=== PATIENT | male | born 1980 | race Caucasian/White ===

== ENCOUNTER 2024-08-04 14:00 | Emergency (ER) | payer OTHER, SELFPAY ==
--- NOTE | ~2024-08-04 | XR_ITS ---
EXAMINATION: Left elbow series left forearm series left hand wrist series CLINICAL INFORMATION: Fall from roof COMPARISON: None. TECHNIQUE: 3 views of the left elbow. 2 views of the left forearm. 3 views of left hand and wrist FINDINGS: Left elbow: There is a prominent olecranon spur. Bone and joints and soft tissues otherwise unremarkable. Left hand and wrist: There is a mildly displaced, moderate to severely comminuted intra-articular distal radius fracture. The fracture extends to the distal radioulnar joint as well as the radiocarpal joint. At the distal radioulnar joint there is a radial fragment displaced approximately 3 mm ulna. No definite volar or dorsal tilt of the remaining radial articular surface. There is a mildly displaced ulnar styloid fracture. The remaining bones joints and soft tissues in the hand and wrist are normal. Left forearm: Distal radius and ulnar styloid fracture as above. No additional fractures or soft tissue abnormalities. XR/XR hand wrist LT IMPRESSION: Left elbow: No fracture or acute abnormality. Left forearm, wrist, and hand: Mildly displaced moderately to severely comminuted intra-articular fracture of the distal radius. Ulnar styloid fracture Electronically signed by: Pedro Carlin MD 08/04/2024 03:57 PM [facility]
--- NOTE | ~2024-08-04 | CT_ITS ---
EXAMINATION: CT CERVICAL SPINE WITHOUT CONTRAST CLINICAL INFORMATION: Status post fall. COMPARISON: None available. TECHNIQUE: Contiguous axial images through the cervical spine from the craniocervical junction to the thoracic inlet using 3 mm collimation with bone and soft tissue algorithm. Sagittal and coronal reformatted images acquired. This CT examination was performed using dose optimization techniques as appropriate, variously including the following: *Automated exposure control *Adjustment of mA and/or kV according to patient size (this includes techniques or standardized protocols for targeted exams where dose is matched to indication/reason for exam; i.e. extremities or head) *Use of iterative reconstruction technique DLP: 476.53 mGy-cm FINDINGS: Craniocervical junction is intact. C1 is intact. C2 is intact. C3 is intact. C4 is intact. C5 is intact. C6 is intact. C7 is intact. The alignment is normal. Multilevel marginal osteophyte formation C3 C6. No prevertebral compartment hematoma. Tympanic cavities are well aerated. Poor pneumatization of the mastoid air cells. 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 CT/CT cervical spine wo IV con IMPRESSION: L2 level spondylosis, C3 C6 without acute fracture or trauma-related listhesis. Fleischner guidelines were followed. Electronically signed by: Ja Nolen MD 08/04/2024 03:55 PM [facility]
--- NOTE | ~2024-08-04 | XR_ITS ---
EXAMINATION: XR WRIST, LEFT CLINICAL INFORMATION: Post reduction. COMPARISON: None available. TECHNIQUE: PA, lateral, and oblique views of the left wrist. FINDINGS: Distal comminuted and impacted intra-articular radial fracture, status post reduction in near-anatomic alignment. Ulnar styloid avulsion injury is noted. XR/XR wrist LT min 3V IMPRESSION: Distal comminuted and impacted intra-articular radial fracture, status post reduction in near-anatomic alignment. Ulnar styloid avulsion injury is noted. Electronically signed by: Shannen Tracy MD 08/04/2024 06:46 PM [facility]
--- NOTE | ~2024-08-04 | XR_ITS ---
EXAMINATION: Left elbow series left forearm series left hand wrist series CLINICAL INFORMATION: Fall from roof COMPARISON: None. TECHNIQUE: 3 views of the left elbow. 2 views of the left forearm. 3 views of left hand and wrist FINDINGS: Left elbow: There is a prominent olecranon spur. Bone and joints and soft tissues otherwise unremarkable. Left hand and wrist: There is a mildly displaced, moderate to severely comminuted intra-articular distal radius fracture. The fracture extends to the distal radioulnar joint as well as the radiocarpal joint. At the distal radioulnar joint there is a radial fragment displaced approximately 3 mm ulna. No definite volar or dorsal tilt of the remaining radial articular surface. There is a mildly displaced ulnar styloid fracture. The remaining bones joints and soft tissues in the hand and wrist are normal. Left forearm: Distal radius and ulnar styloid fracture as above. No additional fractures or soft tissue abnormalities. XR/XR forearm LT 2V IMPRESSION: Left elbow: No fracture or acute abnormality. Left forearm, wrist, and hand: Mildly displaced moderately to severely comminuted intra-articular fracture of the distal radius. Ulnar styloid fracture Electronically signed by: Pedro Carlin MD 08/04/2024 03:57 PM EST
--- NOTE | ~2024-08-04 | CT_ITS ---
STUDY: IV contrast enhanced CT of the chest, abdomen and pelvis. INDICATION: Fall from 1.5 stories. Dennis helical imaging obtained through the chest, abdomen and pelvis following injection of 85 mL Omnipaque 350 IV contrast without adverse effect. Reconstructed images performed in coronal and sagittal planes. This CT examination was performed using dose optimization techniques as appropriate, variously including the following: *Automated exposure control *Adjustment of mA and/or kV according to patient size (this includes techniques or standardized protocols for targeted exams where dose is matched to indication/reason for exam; i.e. extremities or head) *Use of iterative reconstruction technique TOTAL EXAM DLP: 436.63 and 788.27 mGy-cm, chest and abdomen/pelvis respectively. FINDINGS: CHEST: Airways and lungs: Trachea and bronchi are patent. Minor dependent lower lobe atelectasis. No consolidations, contusions, groundglass opacities or suspicious lung nodules. Pleura: No pneumothoraces, effusions, masses or thickening. Mediastinum: Unremarkable thyroid. Nonspecific anterior mediastinal stranding without mass or lymphadenopathy. Heart size within normal limits. No pericardial effusion. Coronary calcifications: None. Nonaneurysmal aorta with 4 vessel branch anatomy. Nonenlarged pulmonary arteries with no central filling defects. Chest wall and axilla: No pathologic lymphadenopathy. No soft tissue stranding or hematomas. ABDOMEN AND PELVIS: Liver, gallbladder, spleen, pancreas, adrenal glands and kidneys all within normal limits. Stomach is decompressed. Nonobstructive bowel pattern. Unremarkable terminal ileum. Appendix not seen with certainty. Decompressed transverse and descending colon. Pelvic organs are unremarkable. Bladder is well-distended and normal appearing. Vessels: Unremarkable. Lymph nodes: No pathologic lymphadenopathy. Peritoneum/retroperitoneum: Nonspecific mild mesenteric stranding about the some nonocclusive thrombus within perincreatic/duodenal region, celiac and superior mesenteric arteries. No CT evidence of duodenal hematoma. BONES AND SOFT TISSUES: Comminuted displaced fracture of the distal left radius. No acute vertebral body, pelvic or rib fractures . No organized hematomas. Soft tissue stranding adjacent to the left hip. CT/CT abdomen pelvis w IV con IMPRESSION: No definite acute intrathoracic, intra-abdominal or pelvic posttraumatic pathology. Nonspecific epigastric stranding. Correlate clinically. Consider lipase level if clinical suspicion for pancreatitis. Mild left hip soft tissue injury. Incidentally noted displaced, comminuted left radial head fracture. Electronically signed by: Lacy Chaney MD 08/04/2024 04:46 PM [facility]
--- NOTE | ~2024-08-04 | CT_ITS ---
EXAMINATION: CT HEAD WITHOUT CONTRAST CLINICAL INFORMATION: fall with head strike, 1.5 stories COMPARISON: None available. TECHNIQUE: Contiguous axial imaging was performed from the skull base to vertex without intravenous administration of contrast. This CT examination was performed using dose optimization techniques as appropriate, variously including the following: *Automated exposure control *Adjustment of mA and/or kV according to patient size (this includes techniques or standardized protocols for targeted exams where dose is matched to indication/reason for exam; i.e. extremities or head) *Use of iterative reconstruction technique DLP: 867.79 mGy-cm FINDINGS: No acute intracranial hemorrhage, mass effect, midline shift, hydrocephalus or herniation. [place]-white matter differentiation is normal. Posterior cranial fossa contents demonstrated no acute intracranial hemorrhage or mass effect. Sellar/suprasellar region demonstrated no gross hemorrhage or mass effect. Craniocervical junction is intact. No gross soft tissue scalp contusion/hemorrhage. Bony calvarium is intact. Skull base is intact. Mucosal thickening in the paranasal sinuses. Tympanic cavities are well aerated and pneumatized. For pneumatization of the mastoid air cells. CT/CT head/brain wo IV con IMPRESSION: No acute fracture, bony calvarium. No acute intracranial hemorrhage. Electronically signed by: Ja Nolen MD 08/04/2024 03:51 PM EST
--- NOTE | ~2024-08-04 | XR_ITS ---
EXAMINATION: Left elbow series left forearm series left hand wrist series CLINICAL INFORMATION: Fall from roof COMPARISON: None. TECHNIQUE: 3 views of the left elbow. 2 views of the left forearm. 3 views of left hand and wrist FINDINGS: Left elbow: There is a prominent olecranon spur. Bone and joints and soft tissues otherwise unremarkable. Left hand and wrist: There is a mildly displaced, moderate to severely comminuted intra-articular distal radius fracture. The fracture extends to the distal radioulnar joint as well as the radiocarpal joint. At the distal radioulnar joint there is a radial fragment displaced approximately 3 mm ulna. No definite volar or dorsal tilt of the remaining radial articular surface. There is a mildly displaced ulnar styloid fracture. The remaining bones joints and soft tissues in the hand and wrist are normal. Left forearm: Distal radius and ulnar styloid fracture as above. No additional fractures or soft tissue abnormalities. XR/XR elbow LT 2V IMPRESSION: Left elbow: No fracture or acute abnormality. Left forearm, wrist, and hand: Mildly displaced moderately to severely comminuted intra-articular fracture of the distal radius. Ulnar styloid fracture Electronically signed by: Pedro Carlin MD 08/04/2024 03:57 PM EST
[2024-08-04 14:11] VITALS: BP 176/111; PULSE 85; RESP 18; TEMP 36.8; O2SAT 98; BMI 30.3
--- NOTE | 2024-08-04 14:12 | ED_ITS ---
HPI - General Adult General Chief complaint: Trauma Stated complaint: fall, hand/head inj Time Seen by Provider: 08/04/24 14:27 History of Present Illness ED Provider: Dr. Mijares HPI narrative: 44 y/o M patient; without significant PMH or daily medications, presents from home reporting slip and fall off approx 15 foot high roof prior to arrival. The patient was standing on a roof when he slipped on wet leaves and fell off of the roof. He had + head strike without loss of consciousness. His primary complaint is left wrist pain. He otherwise denies: headache, neck pain, back pain, chest pain, SOB, nausea/vomiting, abdominal pain. He has been ambulatory since the event. Unknown tdap. He did not take analgesia prior to arrival. Related Data Allergies Allergy/AdvReac Type Severity Reaction Status Date / Time No Known Allergies Allergy Verified 08/04/24 14:18 Review of Systems 2 Review of Systems: Yes all other systems are reviewed and are negative PMFSH Past Medical History Attestation statement: The following information was validated with the patient. Source: unable to obtain Social History Social History Advance Directives: No Advance Directives Information Provided: Yes Do you have a plan to hurt others: No Plan Physical Exam ED Vital Signs: Vital Signs - 24 hr 08/04/24 14:11 08/04/24 16:17 08/04/24 16:38 Temperature 98.3 F 98.2 F 97.6 F Pulse Rate 85 81 77 Respiratory Rate 18 16 18 Blood Pressure 176/111 H 130/82 128/81 Pulse Oximetry 98 98 98 Oxygen Delivery Method Room Air Room Air Room Air 08/04/24 18:12 Temperature 98.0 F Pulse Rate 88 Respiratory Rate 16 Blood Pressure 136/86 Pulse Oximetry 97 Oxygen Delivery Method Room Air BMI result Body Mass Index 30.3 Patient is afebrile, quite hypertensive. Const General: cooperative HENMT Other: Left forehead abrasion No septal hematoma Dentition intact Eyes General: appearance normal, both eyes and all related structures Pupils: Equal, round and reactive pupils present EOM: EOMs intact bilaterally Neck Other: C-collar in place Neck: Yes normal visual inspection and No tender Chest Chest palpation & inspection: normal inspection of the chest and normal palpation of entire chest wall Resp Effort & Inspection: normal respiratory effort, able to speak in complete sentences, no cough and no respiratory distress Auscultation: clear to auscultation bilaterally Cardio Rate: regular rate Rhythm: regular rhythm Peripheral pulses: Peripheral pulses 2+ throughout GI Inspection: Yes normal to inspection, No Abdominal wall edema and No distended Palpation (GI): Soft to palpation, not firm, nontender, no guarding and not rigid Back/Spine/Pelvis Back: No back tenderness Neuro Cranial nerves: Yes Equal, round and reactive pupils present Extrem Other: Left upper extremity: left wrist + deformity, no skin abrasion or laceration, NVI. FROM elbow, shoulder, fingers. Left lower extremity: small abrasions to anterior aspect of tibia Course Course Course Narrative: This is a rapid medical exam performed by Shahana Horn NP: Additional HPI, ROS, PE not included below will be deferred to primary provider. Patient is a 44-year-old Ukranian speaking male presenting to the ED with family who reports a fall from 1.5 stories prior to arrival. Was on the roof and slipped, falling onto left side. Denies LOC. Left forearm/wrist deformity. C-collar applied in triage. payroll benefits clerk notified and patient brought directly to main ED. Abrasions to face. Plan: labs and imaging Reevaluation(s) Reevaluation #1: Patient is afebrile and hemodynamically stable. Will obtain trauma imaging and labs, including XRs left wrist/forearm/elbow. Providing tdap and tylenol for pain management. Labs reviewed. No leukocytosis. No anemia. Mild transaminitis, unclear baseline. CT Head/Neck without acute traumatic abnormalities. CT Chest/Abdomen/Pelvis without acute traumatic abnormalities. Noted possible abnormality along pancreas but patient's lipase is negative and he does not have abdominal discomfort. XR Left Elbow/Forearm/Wrist with mildly displaced moderately to severely comminuted intra-articular fracture of the distal radius and ulnar styloid fracture. Discussed with orthopedics who was made aware patient will require follow up. Please see procedure note for further details regarding hematoma block and reduction. Repeat XR with near anatomic alignment of distal radial fx. Plan: Discharge to home with PCP follow up Return precautions given Medications Administered Discontinued Medications Generic Name Dose Route Start Last Admin Trade Name Freq PRN Reason Stop Dose Admin Diphtheria/Tetanus/Acell Pertussis 0.5 ml 08/04/24 14:28 08/04/24 16:38 Diphth,Pertus(Acell),Tet Adult 0.5 Ml Syringe IM 08/04/24 14:29 Not Given .ONCE ONE Acetaminophen 1,000 mg in 100 mls @ 400 mls/hr 08/04/24 14:28 08/04/24 15:05 Ofirmev IV 08/04/24 14:42 Infused ONCE ONE Infusion Iohexol 100 ml 08/04/24 15:19 08/04/24 15:19 Iohexol 350 Mg/Ml 100 Ml Infus..Btl IV 08/04/24 15:20 85 ml ONCE ONE Administration Lidocaine HCl 20 ml 08/04/24 16:30 08/04/24 17:11 Lidocaine Hcl 2 % 20 Ml Vial SUBCUT 08/04/24 16:31 20 ml ONCE ONE Administration Procedures Orthopedic Fracture Reduction Fracture #1: Time Out Performed: Yes Side: left Fracture Reduction Location: radius and ulna Analgesia: hematoma block Technique: direct manipulation Post Reduction X-rays Demonstrate: acceptable reduction Post-reduction neuro exam: intact Post-reduction vascular exam: intact Splint Applied: Yes Patient Tolerated Procedure: well Orthopedic Splinting/Casting Injury #1: Side: left Upper Extremity Injury Location: wrist Upper Extremity Immobilizer: sugar tong splint Medical Decision Making Lab Data 08/04/24 14:29 08/04/24 14:29 Labs: Lab Results 08/04/24 08/04/24 Range/Units 14:29 16:24 WBC 10.5 (4.8-10.8) X10*3/uL RBC 5.19 (4.60-5.80) X10*6/uL Hgb 14.7 (14.0-18.0) g/dl Hct 42.1 (42.0-52.0) % MCV 81.1 (80.0-98.0) fL MCH 28.3 (27.0-33.0) pg MCHC 34.9 (31.0-36.0) g/dl RDW 13.0 (11.0-16.0) % Plt Count 199 (160-400) X10*3/uL MPV 10.7 (9.4-12.4) fL Immature Gran % (Auto) 0.6 H (0.0-0.4) % Neut % (Auto) 79.0 H (45-73) % Lymph % (Auto) 12.8 L (20-40) % [place] % (Auto) 6.4 (2-11) % Eos % (Auto) 0.9 (0-4) % Baso % (Auto) 0.3 (0-2) % Lymph # (Auto) 1.4 (1.2-4.9) X10*3/uL [place] # (Auto) 0.7 (0.1-1.2) X10*3/uL Eos # (Auto) 0.1 (0.0-0.4) X10*3/uL Baso # (Auto) 0.0 (0.0-0.2) X10*3/uL Abs Immat Gran (auto) 0.06 H (0.00-0.03) X10*3/uL Absolute Neuts (auto) 8.3 (2.0-8.3) x10*3/uL Absolute Nucleated RBC 0.000 (0.0-0.012) X10*3/uL Nucleated RBC % (auto) 0.0 (0.0-0.2) /100WBC Sodium 138 (135-145) mmol/L Potassium 3.4 (3.3-5.1) mmol/L Chloride 105 (96-108) mmol/L Carbon Dioxide 24 (22-29) mmol/L Anion Gap 12 (12-20) BUN 18 H (9-16) mg/dL Creatinine 0.83 (0.5-1.4) mg/dL Estim Creat Clear Calc 125.2 Estimated GFR > 60 Random Glucose 104 (60-115) mg/dL Calcium 9.4 (8.4-10.2) mg/dL Total Bilirubin 0.4 (0.0-1.0) mg/dL AST 46 H (5-37) U/L ALT 57 H (0-40) U/L Alkaline Phosphatase 85 (39-117) U/L Total Protein 6.9 (6.5-8.0) g/dL Albumin 4.4 (3.5-5.0) g/dL Lipase 28 (8-78) U/L Urine Color Yellow Urine Appearance Clear Urine pH 6.5 (5.0-9.0) Ur Specific [place] 1.010 (1.005-1.025) Urine Protein Negative (Neg-Trace) mg/dL Urine Glucose (UA) Negative (Negative) mg/dL Urine Ketones Negative (Negative) mg/dL Urine Blood Negative (Negative) Urine Nitrite Negative (Negative) Ur Leukocyte Esterase Negative (Negative) Radiology Impression Discussion of test interpretation with radiology: I have reviewed the radiologist's reading. Radiologist Impression: EXAMINATION: Left elbow series left forearm series left hand wrist series CLINICAL INFORMATION: Fall from roof COMPARISON: None. TECHNIQUE: 3 views of the left elbow. 2 views of the left forearm. 3 views of left hand and wrist FINDINGS: Left elbow: There is a prominent olecranon spur. Bone and joints and soft tissues otherwise unremarkable. Left hand and wrist: There is a mildly displaced, moderate to severely comminuted intra-articular distal radius fracture. The fracture extends to the distal radioulnar joint as well as the radiocarpal joint. At the distal radioulnar joint there is a radial fragment displaced approximately 3 mm ulna. No definite volar or dorsal tilt of the remaining radial articular surface. There is a mildly displaced ulnar styloid fracture. The remaining bones joints and soft tissues in the hand and wrist are normal. Left forearm: Distal radius and ulnar styloid fracture as above. No additional fractures or soft tissue abnormalities. XR/XR hand wrist LT IMPRESSION: Left elbow: No fracture or acute abnormality. Left forearm, wrist, and hand: Mildly displaced moderately to severely comminuted intra-articular fracture of the distal radius. Ulnar styloid fracture Electronically signed by: Pedro Carlin MD 08/04/2024 03:57 PM [facility] [place] Ordering Physician: Dana Horn NP Date of Service: 08/04/24 Procedure(s): CT abdomen pelvis w IV con Accession Number(s): [id number] cc: Physician,Unknown ; Dana Horn NP~ STUDY: IV contrast enhanced CT of the chest, abdomen and pelvis. INDICATION: Fall from 1.5 stories. Dennis helical imaging obtained through the chest, abdomen and pelvis following injection of 85 mL Omnipaque 350 IV contrast without adverse effect. Reconstructed images performed in coronal and sagittal planes. This CT examination was performed using dose optimization techniques as appropriate, variously including the following: *Automated exposure control *Adjustment of mA and/or kV according to patient size (this includes techniques or standardized protocols for targeted exams where dose is matched to indication/reason for exam; i.e. extremities or head) *Use of iterative reconstruction technique TOTAL EXAM DLP: 436.63 and 788.27 mGy-cm, chest and abdomen/pelvis respectively. FINDINGS: CHEST: Airways and lungs: Trachea and bronchi are patent. Minor dependent lower lobe atelectasis. No consolidations, contusions, groundglass opacities or suspicious lung nodules. Pleura: No pneumothoraces, effusions, masses or thickening. Mediastinum: Unremarkable thyroid. Nonspecific anterior mediastinal stranding without mass or lymphadenopathy. Heart size within normal limits. No pericardial effusion. Coronary calcifications: None. Nonaneurysmal aorta with 4 vessel branch anatomy. Nonenlarged pulmonary arteries with no central filling defects. Chest wall and axilla: No pathologic lymphadenopathy. No soft tissue stranding or hematomas. ABDOMEN AND PELVIS: Liver, gallbladder, spleen, pancreas, adrenal glands and kidneys all within normal limits. Stomach is decompressed. Nonobstructive bowel pattern. Unremarkable terminal ileum. Appendix not seen with certainty. Decompressed transverse and descending colon. Pelvic organs are unremarkable. Bladder is well-distended and normal appearing. Vessels: Unremarkable. Lymph nodes: No pathologic lymphadenopathy. Peritoneum/retroperitoneum: Nonspecific mild mesenteric stranding about the some nonocclusive thrombus within perincreatic/duodenal region, celiac and superior mesenteric arteries. No CT evidence of duodenal hematoma. BONES AND SOFT TISSUES: Comminuted displaced fracture of the distal left radius. No acute vertebral body, pelvic or rib fractures . No organized hematomas. Soft tissue stranding adjacent to the left hip. CT/CT abdomen pelvis w IV con IMPRESSION: No definite acute intrathoracic, intra-abdominal or pelvic posttraumatic pathology. Nonspecific epigastric stranding. Correlate clinically. Consider lipase level if clinical suspicion for pancreatitis. Mild left hip soft tissue injury. Incidentally noted displaced, comminuted left radial head fracture. Electronically signed by: Lacy Chaney MD 08/04/2024 04:46 PM [facility] EXAMINATION: XR WRIST, LEFT CLINICAL INFORMATION: Post reduction. COMPARISON: None available. TECHNIQUE: PA, lateral, and oblique views of the left wrist. FINDINGS: Distal comminuted and impacted intra-articular radial fracture, status post reduction in near-anatomic alignment. Ulnar styloid avulsion injury is noted. XR/XR wrist LT min 3V IMPRESSION: Distal comminuted and impacted intra-articular radial fracture, status post reduction in near-anatomic alignment. Ulnar styloid avulsion injury is noted. Electronically signed by: Shannen Tracy MD 08/04/2024 06:46 PM [facility] Discharge Plan Discharge Clinical Impression: Fall, Closed fracture distal radius and ulna Patient Disposition: Home, Self-Care Instructions: Wrist Fracture in Adults (ED) Additional Instructions: As we discussed, you were seen after a fall. You were found to have a broken wrist. Your broken wrist was placed in a splint to keep it still. Please follow up with the orthopedic doctor - call tomorrow to make an appointment with their office. You can use Ibuprofen 400mg every 6 hours and Tylenol 1g every 6 hours as needed for pain. Referrals: David Bazan MD [Physician] - 1 day Print Language: Albanian
[2024-08-04 14:34] LABS: MANUAL DIFF FLAG NO
[2024-08-04 14:36] LABS: Basophils Percent Auto 0.3 % (0-2); Eosinophils Absolute Auto 0.1 X10*3/uL (0.0-0.4); Eosinophils Percent Auto 0.9 % (0-4); Hematocrit 42.1 % (42.0-52.0); Hemoglobin 14.7 g/dl (14.0-18.0); Imm Gran Abs Auto 0.06 X10*3/uL (0.00-0.03); Imm Gran Pct Auto 0.6 % (0.0-0.4); Lymphocytes Absolute Auto 1.4 X10*3/uL (1.2-4.9); Lymphocytes Percent Auto 12.8 % (20-40); Mean Corpuscular HGB Conc 34.9 g/dl (31.0-36.0); Mean Corpuscular Hemoglobin 28.3 pg (27.0-33.0); Mean Corpuscular Volume 81.1 fL (80.0-98.0); Mean Platelet Volume 10.7 fL (9.4-12.4); Monocytes Absolute Auto 0.7 X10*3/uL (0.1-1.2); Monocytes Percent Auto 6.4 % (2-11); Neutrophils Absolute Auto 8.3 x10*3/uL (2.0-8.3); Platelet Count 199 X10*3/uL (160-400); Red Blood Count 5.19 X10*6/uL (4.60-5.80); White Blood Count 10.5 X10*3/uL (4.8-10.8)
--- NOTE | 2024-08-04 14:42 | PC.NURSE ---
only ocmplaint is left arm pain. deformity left lower pain. ice applied./ no neuro deficits noted. denies headache.
[2024-08-04] MEDS: Acetaminophen 1,000 MG/100 ML PIGGYBACK 400 MG IV (14:46)
[2024-08-04 14:56] LABS: Alanine Aminotransferase 57 U/L (0-40); Albumin Level 4.4 g/dL (3.5-5.0); Alkaline Phosphatase 85 U/L (39-117); Anion Gap 12 (12-20); Aspartate Amino Transferase 46 U/L (5-37); Bilirubin Total 0.4 mg/dL (0.0-1.0); Blood Urea Nitrogen 18 mg/dL (9-16); Calcium 9.4 mg/dL (8.4-10.2); Carbon Dioxide 24 mmol/L (22-29); Chloride 105 mmol/L (96-108); Creatinine Clr Calc Pharmacy 125.2; Estimated Glomerular Filt Rate > 60; Glucose Random 104 mg/dL (60-115); Potassium 3.4 mmol/L (3.3-5.1); Sodium 138 mmol/L (135-145); Total Protein 6.9 g/dL (6.5-8.0)
[2024-08-04] MEDS: iohexoL 350 MG/ML 100 ML INFUS..BTL IV (15:19)
[2024-08-04 16:17] VITALS: BP 130/82; PULSE 81; RESP 16; TEMP 36.8; O2SAT 98
--- NOTE | 2024-08-04 16:32 | MHC.EDTECH ---
This pct assumed care of Patient at 1500 ,vitals taken ,Patient urine sample collected and sent to lab ,Patient was re connected to monitoring specialist ,No apparent distress noted ,Plan of Care continue .
[2024-08-04 16:38] VITALS: BP 128/81; PULSE 77; RESP 18; TEMP 36.4; O2SAT 98
[2024-08-04 16:38] LABS: Appearance Urine Clear; Color Urine Yellow; Glucose Urine UA Negative (Negative); Leukocyte Esterase Urine Negative (Negative); Nitrite Urine Negative (Negative); PH 6.5 (5.0-9.0); Urine Blood Negative (Negative); Urine Ketones Negative (Negative); Urine Protein Negative (Neg-Trace)
--- NOTE | 2024-08-04 16:39 | PC.NURSE ---
collar has been rmoved by Dr Mijares. Pt denies pain unless he moves LUE. awaits a few imaging results and reduction of LUE.
[2024-08-04] MEDS: Lidocaine HCl 2 % 20 ML VIAL SUBCUT (17:11)
[2024-08-04 17:13] LABS: Lipase 28 U/L (8-78)
[2024-08-04 18:12] VITALS: BP 136/86; PULSE 88; RESP 16; TEMP 36.7; O2SAT 97
--- NOTE | 2024-08-04 18:13 | MHC.EDTECH ---
This pct set up and assist Provider Mijares with Patient reeducation and splinting .Sling Placed on Patient left shoulder .
[2024-08-04 19:25] VITALS: BP 136/89; PULSE 90; RESP 16; TEMP 36.7; O2SAT 97
[2024-08-04 19:26] VITALS: BP 136/89; PULSE 90; RESP 16; TEMP 36.7; O2SAT 97
== END 2024-08-04 19:27 | disposition home or self-care (01) ==
PROVIDERS: Registered Nurse Emergency; Emergency Provider Emergency Medicine
DX: S52.502A Unspecified fracture of the lower end of left radius, initial encounter for closed fracture (principal); S09.90XA Unspecified injury of head, initial encounter; W13.2XXA Fall from, out of or through roof, initial encounter; Y93.H9 Activity, other involving exterior property and land maintenance, building and construction; Y92.007 Garden or yard of unspecified non-institutional (private) residence as the place of occurrence of the external cause; Y99.9 Unspecified external cause status; M25.532 Pain in left wrist
CPT/HCPCS: 36415; 70450; 71260; 72125; 73070; 73090; 73110; 73130; 74177; 80053; 81003; 83690; 85025; 96365; 99284; J0131; J2003; Q9967

== ENCOUNTER → 2024-08-04 14:13 | Outpatient (BNV) | payer OTHER, SELFPAY | PROVIDERS: Emergency Provider Emergency Medicine; Visit Provider Radiology Diagnostic Radiology | DX: S06.0X0A Concussion without loss of consciousness, initial encounter (principal); W13.2XXA Fall from, out of or through roof, initial encounter | CPT/HCPCS: 70450; 72125 ==

== ENCOUNTER 2024-08-11 09:04 | Outpatient (AMB) | payer OTHER, SELFPAY ==
--- NOTE | 2024-08-11 09:13 | MHC.OFFVIS ---
Vital Signs 08/11/24 09:15 Height 5 ft 9 in Weight 209 lb BMI 30.9 Intake Visit Reasons: FC - LT distal radius and ulna fx DOI 08/04/24 Intake Note: Madan is a 44 yo right hand dominant male who presents today for ED follow up s/p left distal radius and ulna fracture, DOI 08/04/24. Patient reports he slipped and fell off approximately 15 foot high roof while standing on wet leaves. Patient reports pain on the dorsal and radial aspect of the left hand. Patient reports numbness at the fingertips of the left hand and tingling on the left upper arm. Patient denies any surgeries or injuries to the left hand. Inspector [employer] Required: Yes [employer] Language: Bulgarian [employer] Name: [id number] Allergies No Known Allergies Allergy (Verified 08/11/24 09:17) HPI HPI FC - LT distal radius and ulna fx DOI 08/04/24: Details: Madan is a 44 year old right hand dominant Bulgarian speaking man who presents for a left wrist fracture, S/P fall. he say she slipped and fell off of his roof on 08/04/24. He was seen in the ED where his distal radius fracture was reduced and placed in a sugar-tong splint. [employer] service was used today He presents today with complaints of pain in his wrist. He says it is feeling better. He denies any numbness tingling, locking, catching, or other prior injuries/surgeries. 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 Review of Systems Const All systems reviewed & are unremarkable except as noted in HPI and below Physical Exam Vital Signs: BMI result Body Mass Index 30.9 Const General: cooperative, healthy appearing and no acute distress Orientation/consciousness: patient oriented x3 HEENT Head: Yes normocephalic and Yes atraumatic Eyes EOM: EOMs intact bilaterally Resp Effort & Inspection: normal respiratory effort and able to speak in complete sentences Cardio Jugular venous distension: no JVD Skin General skin exam: turgor normal Rashes: no rashes Neuro General: patient oriented x3 Extrem Other: Evaluation of Left Upper Extremity: The patient is alert, oriented, and in no acute distress The patient is in a sugar-tong splint. The splint is clean dry and intact. The splint allows for active flexion and extension of his fingers including the MCP joints. He does have some mild swelling in the fingers. I showed him some exercises and he was able to weakly bring his fingers close to a fist and back into extension. Sensation intact to the tips of all digits and cap refill brisk. Radiographs: 3 views of the left wrist were taken, viewed, and compared to prior radiographs from 08/04/24. They show a left distal radius fracture, comminuted, intra-articular, S/P reduction with satisfactory fracture alignment today. Despite the comminution the reduction significantly improved the overall alignment which he has maintained on today's radiographs now 7 days post injury. He is at neutral on the lateral view.. There is also an ulnar styloid avulsion fracture involving the tip of the ulnar styloid.. Psych Appearance: grossly normal Affect: normal affect Attitude: cooperative Office Procedures AMB Fracture Care Details: Fracture care 81471 Fracture Billing Code: Fracture Billing Code Assessment & Plan Assessment & Plan (1) Fracture of left distal radius: Code(s): S52.502A - Unspecified fracture of the lower end of left radius, initial encounter for closed fracture Category: Medical (2) Nondisplaced fracture of styloid process of left ulna: Code(s): S52.615A - Nondisplaced fracture of left ulna styloid process, initial encounter for closed fracture Category: Medical Plan Assessment & Plan: 1. Left distal radius fracture, comminuted, intra-articular S/P fall, DOI: 08/04/24 S/P reduction in the ED on 08/04/24 2. Left ulnar styloid avulsion fracture S/P fall, DOI: 08/04/24 I educated him about this condition I discussed operative and non-operative treatment options He has maintained his reduction in the 7 days since his injury. We will manage this conservatively at this time, and he is in agreement He will continue to wear his sugar-tong splint like a cast for the next week He should keep this elevated when at home I discussed activity modification, he is to lift nothing heavier than a cellphone for the next 6 weeks. He will work on gentle finger ROM exercises at home in his splint. He is not to make a closed fist with any force He declined a note for work today, saying he has time off available to him for the next 4 weeks, possibly longer. 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 i explained that he is likely to not return to full duty for at least 6-8 weeks, depending on healing He will follow up in 1 week, with X-rays, 3V L wrist OOP. If his alignment is unchanged I anticipate placement in a short-arm cast for the next 3 weeks Scribed for Emily Blevins MD by Edgar Berg, medical billing instructor, on 08/11/24 at 9:30 AM, EST. Orders: Orders XR wrist LT min 3V Today M25.532 - Pain in left wrist Coding Level of Care Code New Pt Level 4 (31842) Diagnoses Fracture of left distal radius S52.502A Nondisplaced fracture of styloid process of left ulna S52.615A CPT Codes Fracture Care - Fracture Billing Code: Fracture Billing Code ([id number])
[2024-08-11 09:15] VITALS: BMI 30.9
== END 2024-08-11 09:53 | disposition home or self-care (01) ==
PROVIDERS: Visit Provider Orthopaedic Surgery
DX: S52.502A Unspecified fracture of the lower end of left radius, initial encounter for closed fracture (principal); S52.615A Nondisplaced fracture of left ulna styloid process, initial encounter for closed fracture
CPT/HCPCS: 25600; 99204

== ENCOUNTER 2024-08-11 09:15 | Outpatient (REF) | payer OTHER, SELFPAY | END 2024-08-11 09:16 | disposition home or self-care (01) | LOC: HO.HOSX 09:15 | PROVIDERS: Visit Provider Orthopaedic Surgery | DX: M25.532 Pain in left wrist (principal); S52.502D Unspecified fracture of the lower end of left radius, subsequent encounter for closed fracture with routine healing; S52.615D Nondisplaced fracture of left ulna styloid process, subsequent encounter for closed fracture with routine healing | CPT/HCPCS: 25600; 73110; 99202 ==

== ENCOUNTER 2024-08-19 11:03 | Outpatient (AMB) | payer OTHER, SELFPAY ==
--- NOTE | 2024-08-19 11:17 | A.OFFVIS_ITS ---
Intake Visit Reasons: OV-LT distal radius and ulna-3V LT wrist w/xray Intake Note: Madan is a 44 yo right hand dominant male who presents today for a follow up evaluation s/p left distal radius and ulna fracture, DOI 08/04/24. Patient reports numbness and pain on the ulnar aspect of the left hand. He is not taking anything for pain at this time. Per Diem Physical Therapist Required: Yes Per Diem Physical Therapist Language: Namibian Per Diem Physical Therapist Name: [id number] Allergies No Known Allergies Allergy (Verified 08/19/24 11:21) HPI HPI OV-LT distal radius and ulna-3V LT wrist w/xray: Details: Madan is a 44 year old right hand dominant Namibian speaking man who presents for a left wrist fracture, S/P fall. he say she slipped and fell off of his roof on 08/04/24. He was seen in the ED where his distal radius fracture was reduced and placed in a sugar-tong splint. We have thus far manage this non operatively by keeping him in a splint. Per Diem Physical Therapist service used today. He is complaining of new numbness in the ulnar aspect of his hand. 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 The splint was removed today for radiographs. After removing the splint today he had stiffness in his elbow, but we worked on gentle ROM exercises He was able to make a weak fist and bring his fingers back into full extension Swelling improved Resolving ecchymosis No lacerations. No tenderness along the length of the ulna, including at the ulnar styloid Mild tenderness over the fracture site at the distal radius Decreased sensation to the tip of the small finger Normal sensation to all other digits Radiographs: 3 views of the left wrist were taken, viewed, and compared to prior radiographs from both 08/04/24 & 08/11/24. They show a left distal radius fracture, comminuted, intra-articular, S/P reduction with satisfactory fracture alignment today. Despite the comminution the reduction significantly improved the overall alignment which he has maintained on today's radiographs now 15 days post injury. He is at neutral on the lateral view. There is also an ulnar styloid avulsion fracture involving the tip of the ulnar styloid.. Assessment & Plan Assessment & Plan (1) Fracture of left distal radius: Code(s): S52.502A - Unspecified fracture of the lower end of left radius, initial encounter for closed fracture Category: Medical (2) Nondisplaced fracture of styloid process of left ulna: Code(s): S52.615A - Nondisplaced fracture of left ulna styloid process, initial encounter for closed fracture Category: Medical Plan Assessment & Plan: 1. Left distal radius fracture, comminuted, intra-articular S/P fall, DOI: 08/04/24 S/P reduction in the ED on 08/04/24 2. Left ulnar styloid avulsion fracture S/P fall, DOI: 08/04/24 I educated him about this condition I discussed operative and non-operative treatment options He has maintained his reduction in the 14 days since his injury. We will manage this conservatively at this time, and he is in agreement He was placed in a short arm cast, to be worn for the next 3 weeks He should keep this elevated when at home I discussed activity modification, he is to lift nothing heavier than a cellphone for the next 4 weeks. He will work on gentle finger and elbow ROM exercises at home, including 45 degrees of wrist pronation & supination, and elbow ROM He declined a note for work today, saying he has time off available to him for the next 3 weeks, possibly longer. 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 I explained that he is likely to not return to full duty for at least 6-8 weeks, depending on healing He will follow up in 3 week, with X-rays, 3V L wrist OOP. Scribed for Emily Blevins MD by Edgar Berg, certified medical records coder, on 08/19/24 at 11:30 AM, EST. Orders: Orders XR wrist LT min 3V Today M25.532 - Pain in left wrist Coding Level of Care Code Global (63655) Diagnoses Fracture of left distal radius S52.502A Nondisplaced fracture of styloid process of left ulna S52.615A
== END 2024-08-19 12:10 | disposition home or self-care (01) ==
PROVIDERS: Visit Provider Orthopaedic Surgery
DX: S52.502A Unspecified fracture of the lower end of left radius, initial encounter for closed fracture (principal); S52.615A Nondisplaced fracture of left ulna styloid process, initial encounter for closed fracture
CPT/HCPCS: 99024

== ENCOUNTER 2024-08-19 11:06 | Outpatient (REF) | payer OTHER, SELFPAY | END 2024-08-19 11:07 | disposition home or self-care (01) | LOC: HO.HOSX 11:06 | PROVIDERS: Visit Provider Orthopaedic Surgery | DX: M25.532 Pain in left wrist (principal); S52.502A Unspecified fracture of the lower end of left radius, initial encounter for closed fracture; S52.615A Nondisplaced fracture of left ulna styloid process, initial encounter for closed fracture | CPT/HCPCS: 73110; 99212 ==

== ENCOUNTER 2024-09-08 09:06 | Outpatient (AMB) | payer OTHER, SELFPAY ==
[2024-09-08 09:23] VITALS: BMI 30.9
--- NOTE | 2024-09-08 09:23 | MHC.OFFVIS ---
Vital Signs 09/08/24 09:23 Height 5 ft 9 in Weight 209 lb BMI 30.9 Intake Visit Reasons: OV-LT distal radius and ulna-3V LT wrist w/xray Intake Note: Madan is a 44 year old right hand dominant [place]inean speaking male presents today for a follow up evaluation s/p left distal radius and ulna fracture, DOI 08/04/24. Cast removed in office and xrays updated. States he has some soreness and a little pain . Denies numbness or tingling. Allergies No Known Allergies Allergy (Verified 09/08/24 09:34) HPI HPI OV-LT distal radius and ulna-3V LT wrist w/xray: Details: Madan is a 44 year old right hand dominant [place] speaking man who returns for his left distal radius & ulnar styloid fractures, S/P fall, DOI: 08/04/24. Translation service used today. He says he is doing better but still has some pain & tightness in his wrist. 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 Review of Systems Const All systems reviewed & are unremarkable except as noted in HPI and below Physical Exam Vital Signs: BMI result Body Mass Index 30.9 Const General: no acute distress and alert Orientation/consciousness: patient oriented x3 Neuro General: patient oriented x3 Extrem Other: Evaluation of Left Upper Extremity: The patient is alert, oriented, and in no acute distress We worked on gentle ROM exercises today in clinic He could make a week fist and extend all his digits Wrist ROM: ~ about 45 degrees pronation ~ about 40 degrees supination Swelling improving Resolving ecchymosis Skin in good condition No tenderness at the ulnar styloid. No tenderness over the distal radius fracture today or at the DRUJ. The DRUJ is stable. Normal sensation to all digits Radiographs: 3 views of the left wrist were taken and viewed by me today in clinic. They show a left distal radius fracture, comminuted, intra-articular, S/P reduction with satisfactory fracture alignment & some evidence of interval bony healing. He has ~5 degrees dorsal tilt on the lateral view. There is also an ulnar styloid avulsion fracture involving the tip of the ulnar styloid. Psych Appearance: grossly normal Affect: normal affect Attitude: cooperative Assessment & Plan Assessment & Plan (1) Fracture of left distal radius: Code(s): S52.502A - Unspecified fracture of the lower end of left radius, initial encounter for closed fracture Category: Medical (2) Nondisplaced fracture of styloid process of left ulna: Code(s): S52.615A - Nondisplaced fracture of left ulna styloid process, initial encounter for closed fracture Category: Medical Plan Assessment & Plan: 1. Left distal radius fracture, comminuted, intra-articular S/P fall, DOI: 08/04/24 S/P reduction in the ED on 08/04/24 2. Left ulnar styloid avulsion fracture S/P fall, DOI: 08/04/24 I educated him about this condition He appears to be doing well. He was fitted for a velcro wrist splint to be worn for the next 4 weeks. He will remove this when at home to work on ROM exercises, and in 2 weeks time he can remove his splint when at home at rest, but should continue to wear this out of the house. He will work on ROM exercises when out of his splint, he is not to work on wrist flexion & extension at this time. I want to allow for a couple more weeks of bony healing for this comminuted intra-articular fracture I ordered OT hand therapy, to begin in 2 weeks from now, to work on ROM, strengthening, and normalizing function. He may begin more rigorous flexion and extension range of motion exercises at that time. I discussed activity modification, he is able to use his hand for lightweight activities for the next 2 weeks, before slowly increasing his weight limit as tolerated. 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 He still has a 2 lb weight limit. I anticipate that we will likely be able to get him back to working and window installation at about the 10-12 week post injury time frame. He will follow up in 4 weeks, with radiographs three views of the left wrist Scribed for Emily Blevins MD by Edgar Berg emergency medical dispatcher, on 09/08/24 at 9:50 AM, EST. Orders: Orders XR wrist LT min 3V Today M25.532 - Pain in left wrist OT Evaluation and Treatment Today S52.502A - Unspecified fracture of the lower end of left radius, initial encounter for closed fracture, S52.615A - Nondisplaced fracture of left ulna styloid process, initial encounter for closed fracture Coding Level of Care Code Global (98493) Diagnoses Fracture of left distal radius S52.502A Nondisplaced fracture of styloid process of left ulna S52.615A
== END 2024-09-08 10:09 | disposition home or self-care (01) ==
PROVIDERS: Visit Provider Orthopaedic Surgery
DX: S52.502A Unspecified fracture of the lower end of left radius, initial encounter for closed fracture (principal); S52.615A Nondisplaced fracture of left ulna styloid process, initial encounter for closed fracture
CPT/HCPCS: 99024

== ENCOUNTER 2024-09-08 11:28 | Outpatient (REF) | payer OTHER, SELFPAY | END 2024-09-08 11:29 | disposition home or self-care (01) | LOC: HO.HOSX 11:28 | PROVIDERS: Visit Provider Orthopaedic Surgery | DX: M25.532 Pain in left wrist (principal); S52.502A Unspecified fracture of the lower end of left radius, initial encounter for closed fracture; S52.615A Nondisplaced fracture of left ulna styloid process, initial encounter for closed fracture | CPT/HCPCS: 73110; 99212 ==

== ENCOUNTER → 2024-09-30 11:25 | Outpatient (BNVA) | payer SELFPAY | PROVIDERS: Visit Provider Physician Assistant Medical | DX: Z02.79 Encounter for issue of other medical certificate (principal) ==

== ENCOUNTER 2024-10-07 10:24 | Outpatient (REF) | payer SELFPAY ==
--- NOTE | ~2024-10-07 | XR_ITS ---
EXAMINATION: XR WRIST 3 OR MORE VIEWS LEFT HISTORY: M25.532 - Pain in left wrist COMPARISON: Comparison is made with the prior examination dated 09/08/2024. FINDINGS: Three views of the left wrist are submitted. Osseous mineralization is normal. Again seen is a comminuted intra-articular fracture of the distal radius. Alignment is unchanged. There has been blurring of fracture margins consistent with healing. An ulnar styloid fracture is also noted. The joint spaces are preserved. The soft tissues are unremarkable. XR/XR wrist LT min 3V IMPRESSION: Healing comminuted intra-articular fracture of the distal radius with associated ulnar styloid fracture. Electronically signed by: Ric Brice MD 10/09/2024 07:34 AM EST
== END 2024-10-07 10:25 | disposition home or self-care (01) ==
LOC: HO.HOSX 10:24
PROVIDERS: Visit Provider Orthopaedic Surgery
DX: M25.532 Pain in left wrist (principal); S52.502D Unspecified fracture of the lower end of left radius, subsequent encounter for closed fracture with routine healing; S52.615D Nondisplaced fracture of left ulna styloid process, subsequent encounter for closed fracture with routine healing
CPT/HCPCS: 73110; 99212

== ENCOUNTER 2024-10-07 11:09 | Outpatient (AMB) | payer OTHER, SELFPAY ==
[2024-10-07 11:27] VITALS: BMI 30.9
--- NOTE | 2024-10-07 11:27 | A.OFFVIS_ITS ---
Vital Signs 10/07/24 11:27 Height 5 ft 9 in Weight 209 lb BMI 30.9 Intake Visit Reasons: OV-LT distal radius and ulna- w/xray DOI 08/04/24 Intake Note: Madan 44 year old right hand dominant Luxembourgish speaking male presents today for a follow up s/p left distal radius and ulna fracture, DOI 08/04/24. States he continues to wear his wrist brace. He is also having pain with twisting and bending of wrist. He is also having numbness and tingling in his ring and middle finger that comes and goes especially in the mornings and night time. No EMG done. Assistant Professor Of Theater Name: Alba [id number] Allergies No Known Allergies Allergy (Verified 10/07/24 11:38) HPI HPI OV-LT distal radius and ulna- w/xray DOI 08/04/24: Details: Madan is a 44 year old right hand dominant Luxembourgish speaking man who returns for his left distal radius & ulnar styloid fractures, S/P fall, DOI: 08/04/24. Translation service used today. The fracture was casted and managed non operatively. 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 He can make a tight fist with good strength and no pain. His distal radius was completely nontender to firm palpation. No tenderness about the DRUJ and the DRUJ was stable. He has about 65 degrees of supination and about 75 degrees of pronation Sensation intact Radiographs: Three views of the left wrist were taken and reviewed by me today in clinic. This shows a distal radius fracture with satisfactory fracture alignment and good evidence of interval bony healing. No change in alignment since last visit. Assessment & Plan Assessment & Plan (1) Fracture of left distal radius: Code(s): S52.502A - Unspecified fracture of the lower end of left radius, initial encounter for closed fracture Category: Medical (2) Nondisplaced fracture of styloid process of left ulna: Code(s): S52.615A - Nondisplaced fracture of left ulna styloid process, initial encounter for closed fracture Category: Medical Plan Assessment & Plan: 1. Left distal radius fracture, comminuted, intra-articular S/P fall, DOI: 08/04/24 S/P reduction in the ED on 08/04/24 2. Left ulnar styloid avulsion fracture S/P fall, DOI: 08/04/24 I educated him about this condition He appears to be doing well. He can discontinue his splint at this time He will work on ROM exercises at home, and he is now able to work on wrist flexion & extension. 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 I discussed activity modification, he is able to slowly increase his weight limit as tolerated. He is still to avoid any impact activities, such as using a hammer, and to avoid any falls for the next few weeks. 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 I anticipate that we will likely be able to get him back to working and window installation at next follow up in 4 weeks. He is agreeable to this plan.. He will follow up in 4 weeks, with radiographs three views of the left wrist. Anticipate return to work at that time Scribed for Emily Blevins MD by Edgar Berg, medical observer, on 10/07/24 at 11:40 AM, EST. Orders: Orders OT Evaluation and Treatment Today S52.502A - Unspecified fracture of the lower end of left radius, initial encounter for closed fracture, S52.615A - Nondisplaced fracture of left ulna styloid process, initial encounter for closed fracture XR wrist LT min 3V Today M25.532 - Pain in left wrist Coding Level of Care Code Global (03272) Diagnoses Fracture of left distal radius S52.502A Nondisplaced fracture of styloid process of left ulna S52.615A
== END 2024-10-07 11:50 | disposition home or self-care (01) ==
PROVIDERS: Visit Provider Orthopaedic Surgery
DX: S52.502A Unspecified fracture of the lower end of left radius, initial encounter for closed fracture (principal); S52.615A Nondisplaced fracture of left ulna styloid process, initial encounter for closed fracture
CPT/HCPCS: 99024

== ENCOUNTER → 2024-10-07 11:15 | Outpatient (BNV) | payer OTHER, SELFPAY | PROVIDERS: Visit Provider Radiology Diagnostic Radiology | DX: S52.572D Other intraarticular fracture of lower end of left radius, subsequent encounter for closed fracture with routine healing (principal) | CPT/HCPCS: 73110 ==

== ENCOUNTER 2024-10-19 08:30 | Outpatient (RCR) | payer OTHER, SELFPAY ==
--- NOTE | 2024-09-21 10:19 | MHC.OT.EP ---
[address] [phone] Occupational Therapy Plan of Care Patient Name: Madan Duarte Date of Evaluation: 09/21/24 Diagnosis: Left distal radius fx Pain Location: Pain free at rest 4-8/10 range depending on difficulty of task, sharp pain in dorsal wrist Pain Score: 4 Pain Scale Used: Numeric (0 - 10) Aggravating Factors: Lifting, weightbearing/pressure Alleviating Factors: None needed, pain is short lasting in the moment Assessment: 44 yo male presents s/p fall from his roof 08/04/24. He was seen in ED that day and x-rays shows left intraarticular comminuted distal radius fx with ulnar styloid avulsion fx. He was seen in [facility] and placed in cast. Now cast removed and referred to OT for further treatment. On assessment today, he is very motivated and engaged. Reports pain free at rst and short-intermitant pain only when doing heavier tasks (opening a jar or lifting). Range is limited to 20 degrees flex, 60 degrees ext, 20 degrees pronation and 55 degrees supination. Gross grasp is 20lb to discomfort. I anticipate he will do well w/ course of OT to regain strength, range and overall participation in daily activities w/ goal of return to work. Frequency and Duration: The patient will be seen 1-2x/wk for 4-6 weeks Short Term Goals: Wrist flex 40 degrees Wrist ext 65 degrees Wrist pro 40 degrees Gross grasp 40lb Pt to demo ease w/ light bimanual lifting tasks Classification Inspector Goals: Wrist flex 60 degrees Wrist ext 70 degrees Wrist pro 70 degrees Gross grasp 80lb Pt to demo ease w/ bimanual lifting in prep of return to work QuickDASH score <25 pts Treatment Plan: Therapeutic Exercise Therapeutic Activity Home Exercise Program Patient Education Edema Control ADL Training Paraffin Fluidotherapy MHP Cold Packs Joint Mobilization Soft Tissue Mobilization Kinesiotaping Electronically Signed By: MILLI Gurrola/Ric CHT Please Sign and return to therapist. Thank you once again for your referral.
--- NOTE | 2024-11-20 10:12 | MHC.OT.DC ---
[address] [phone] F: [phone] Occupational Therapy Discharge Note Patient Name: Madan Duarte Provider: Dr Emily Blevins Diagnosis: Left distal radius fx Date of Evaluation: 09/21/24 Date of Discharge: 11/20/24 Treatments to Date: 5 Discharge Status: Improved Function Independent with HEP Patient Elected to Stop Discharge Summary: Madan was referred to OT s/p left distal radius fracture. He was seen for brief (5 visit) course of OT and was progressing well, making gains with range and strength and very motivated with low pain at most times. He was last seen over a month ago and had not yet returned to work, but since that time has had ortho follow up (11/04) and it appears he is back at work partial duty and doing well. He has not followed up for further OT visits, but at this point I anticipate he is Ind w/ home program and self management. Electronically Signed By: MILLI Gurrola/Ric CHT Reviewed/agree with student documentation: Therapist: Please Sign and return to therapist, thank you for your referral.
== END 2024-11-20 10:13 | disposition home or self-care (01) ==
LOC: HO.OT 08:30
PROVIDERS: Visit Provider Orthopaedic Surgery
DX: S52.615A Nondisplaced fracture of left ulna styloid process, initial encounter for closed fracture (principal); S52.502A Unspecified fracture of the lower end of left radius, initial encounter for closed fracture
CPT/HCPCS: 97110; 97165

== ENCOUNTER 2024-11-04 14:45 | Outpatient (AMB) | payer OTHER, SELFPAY ==
--- NOTE | 2024-11-04 15:08 | A.OFFVIS_ITS ---
Vital Signs 11/04/24 15:09 Height 5 ft 9 in Weight 209 lb BMI 30.9 Intake Visit Reasons: OV-LT distal radius and ulna- w/xray DOI 08/04/24 Intake Note: Madan 44 year old right hand dominant Swiss speaking male presents today for a follow up s/p left distal radius and ulna fracture, DOI 08/04/24. States he is doing well and is doing his exercise at home. States at times when gets up he gets a little of numbness and tingling that he didnt have before. Refuge Manager Name: Hiren [id number] Allergies No Known Allergies Allergy (Verified 11/04/24 15:16) Do you need a note to return to daycare/school/sports/work: No HPI HPI OV-LT distal radius and ulna- w/xray DOI 08/04/24: Details: Madan is a 44 year old right hand dominant Swiss speaking man who returns for his left distal radius & ulnar styloid fractures, S/P fall, DOI: 08/04/24. Translation service used today. The fracture was casted and managed non operatively. He says he is doing better, and has been working with OT hand therapy. He says he has some occasional numbness & tingling in the mornings, which is new. 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 He feels that he is ready to go back to work. 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 Full & nearly symmetrical pronosupination He has ~50 degrees of extension & ~30 degrees of flexion His fracture is completely nontender to palpation. Radiographs: Three views of the left wrist were taken and reviewed by me today in clinic. This shows a distal radius fracture with satisfactory fracture alignment and good evidence of interval bony healing. No change in alignment since last visit. Psych Appearance: grossly normal Affect: normal affect Attitude: cooperative Assessment & Plan Assessment & Plan (1) Fracture of left distal radius: Code(s): S52.502A - Unspecified fracture of the lower end of left radius, initial encounter for closed fracture Category: Medical (2) Nondisplaced fracture of styloid process of left ulna: Code(s): S52.615A - Nondisplaced fracture of left ulna styloid process, initial encounter for closed fracture Category: Medical Plan Assessment & Plan: 1. Left distal radius fracture, comminuted, intra-articular S/P fall, DOI: 08/04/24 S/P reduction in the ED on 08/04/24 2. Left ulnar styloid avulsion fracture S/P fall, DOI: 08/04/24 I educated him about this condition He appears to be doing well. He will work on ROM exercises at home. 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 I discussed activity modification, he is able to use his hand for more normal daily activities at this time. 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 He was given a note for work to return to half duty, 4 hours maximum daily effective 11/10/24, for two weeks. Then transition to full duty without restrictions. The patient is happy with this plan. He will follow up prn Scribed for Emily Blevins MD by Edgar Berg medical sales specialist, on 11/04/24 at 3:30 PM, EST. Coding Level of Care Code Global (28610) Diagnoses Fracture of left distal radius S52.502A Nondisplaced fracture of styloid process of left ulna S52.615A
[2024-11-04 15:09] VITALS: BMI 30.9
--- OUTSIDE RECORDS SUMMARY | 2024-11-04 16:00 | XMS_ITS | Clinical Summary ---
Author Organization [facility] Address [address] [place] [address] Care Team Providers Care Music Promoter Name Role Phone Radha Manriquez PA-C Primary Care Provider [phone] Source Comments PLEASE NOTE, if this patient is a minor, it may be UNLAWFUL to discuss sensitive information that is contained in these records (such as FAMILY PLANNING, MENTAL HEALTH or SUBSTANCE ABUSE) with the minor patient's parent or other person without the patient's specific authorization.[facility] Allergies No known active allergies Medications diclofenac sodium (VOLTAREN) 1 % gelIndications: Pain in both knees, unspecified chronicity Apply topically 2 (two) times daily 100 g 2 08/10/20 21 Active omeprazole (PRILOSEC) [address] capsuleIndicati ons:Epigastric pain Take 1 Capsule by mouth 2 (two) times daily 60 Capsule 1 01/24/20 22 Active azithromycin (ZITHROMAX Z-YANI) 250 mg tabletIndicatio ns:Acute bronchitis, unspecified organism Use as directed, disp Zpak 6 Tablet 02/03/20 22 Active lidocaine (LIDODERM) 5 % patchIndication s:Pain in both knees, unspecified chronicity Place 1 Patch onto the skin once daily (every 24 hours) 30 Patch 1 02/03/20 22 Active codeine-guaifen esin (TUSSI-ORGANIDI N NR) 10-100 mg/5 mL syrupIndication s:Acute bronchitis, unspecified organism Take 5 mL by mouth 3 (three) times daily as needed for cough 120 mL 02/09/20 22 Active hydrocortisone (ANUSOL-HC) [address] 1 Suppository rectally 3 (three) times a week 30 Suppository 2 10/26/19 23 Active hydrocortisone (ANUSOL-HC) 2.5 % topical cream Place rectally 3 (three) times a week 30 g 3 10/26/19 23 Active Active Problems Problem Noted Date Diagnosed Date Erosive gastritis (diagnosed in [facility]) 022 Hx of appendectomy Immunizations Name Administration Dates Next Due Hep B,adult,adjuvanted (HEPLISAV) 05/24/2020 IPV 07/24/2019 MMR (MMR II/Priorix) 11/11/2019 Measles, Live 10/25/1984,01/02/1979 Mumps, Live 03/14/1985 OPV, Trivalent 08/06/1995, 2,08/26/1986,1984 TDAP 11/11/2019,07/24/2019 Td (adult) unspecified 05/12/2008,2001,08/18/1995,1994 Td(adult),2 Lf tetanus toxoid,preservative free 05/12/2008,09/10/2002,08/18/1995,1994 Family History Medical History Relation Name Comments Other Father leukemia age 50 s Breast cancer Mother Hypertension Mother Migraines Mother Relation Name Status Comments Brother 1 Alive Brother 2 Alive Father Mother Alive Sister 1 Alive Sister 2 Alive Sister 3 Alive Social History Tobacco Use Types Packs/Day Years Used Date Smoking Tobacco: Never Smokeless Tobacco: Never Tobacco Cessation:Counseling Given: Not Answered Alcohol Use Standard Drinks/Week Comments Never 0 (1 standard drink = 0.6 oz pur e alcohol) Social Connections Answer Date Recorded Connectedness 0 01/23/2022 Financial Resource Strain Answer Date R ecorded Financial Resource Strain 0 2021 Stress Answer Date Recorded Stress 0 01/23/2022 Physical Activity Answer Date Recorded Physical Activity 0 11/11/2019 Food Insecurity Answer Date Recorded Food 0 01/23/2022 Transportation Needs Answer Date Record ed Transportation 0 01/23/2022 Housing Stability Answer Date Recorded Housing 0 01/23/2022 Safety and Environment Answer Date Natan rded Safety 0 11/11/2019 Utilities Answer Date Recorded Utilities 0 01/23/2022 Employment Answer Date Recorded Employment 0 11/11/2019 Sex and Gender Information Value Date Recorded Sex Assigned at Male 11/11/2019 11:43 AM PST Legal Sex Male 1:11 PM PST Gender Identity Male 11/11/2019 11:43 AM PST Sexual Orientation Straight 11/11/2019 11 :43 AM PST Last Filed Vital Signs Vital Sign Reading Time Taken Comments Blood Pressure 129/88 08/05/2023 3:44 PM EST Pulse 83 08/05/2023 3:44 PM EST Temperature 36.6 ??C (97.9 ??F) 08/05/2023 3:44 PM ES T Respiratory Rate 14 08/05/2023 3:44 PM EST Oxygen Saturation 98% 01/23/2022 3:25 PM EDT Inhaled Oxygen Concentration - - Weight 91.6 kg (202 lb) 08/05/2023 3:44 PM EST Height 180 cm (5' 10.87 ) 01/23/2022 3:25 PM EDT Body Mass Index 28.28 01/23/2022 3:25 PM EDT Plan of Treatment Upcoming Encounters Date Type Department Care Team (Late st Contact Info) Description 12/29/2024 8:40 AM EDT Office Visit [facility] [address] [place] [address] Radha Manriquez PA-C [address] [place] [address] Health Maintenance Due Date Last Done Comments Imm-Hepatitis B (2 of 2 - Cp G 2-dose series) 06/21/2020 05/24/2020 Annual Preventive Care Visit 05/24/2021 05/24/2020 CT Colonography 2023 FIT/gFOBT 2023 Fecal DNA 2023 Flexible Sigmoidoscopy 2023 [id number] ( season) 2024 Imm-Influenza (#1) 2024 Hypertension Screening (#1) 08/04/2024 Diabetes Screening 08/10/2024 08/10/2021, 1 10/10/2020, 05/24/2020, Additional history exists Alcohol and Drug Screen 09/23/2024 01/24/20, 08/10/2021, 11/14/2020, Additional history exists Depression Annual Screen 09/23/2024 01/23/2022 Tobacco Screening 01/19/2025 01/20/2024 Lipid Screening 08/10/2026 08/10/2021, 05/24/2020 Imm-DTaP/Tdap/Td (5 - Td or Tdap) 11/11/2029 11/11/2019, 07/24/2019, 05/12/2008, Additional history exists Colonoscopy 06/12/2033 06/12/2023 Colorectal Cancer Screening 06/12/2033 HIV Screening Completed 11/11/2019 Hepatitis C Screening Completed 05/24/2020 Procedures Procedure Name Priority Date/Time Associated Diagnosis Comments REFERRAL SCANNED DOCUMENT 08/19/2024 3:00 AM EST REFERRAL SCANNED DOCUMENT 08/11/2024 3:00 AM EST HISTORIC COLONOSCOPY 06/12/2023 3:00 AM EDT HEMOGLOBIN GLYCOSYLATED A1C Routine 08/10/2021 2:53 PM EST Routine general medical examination at a health care facility LIPID PANEL Routine 08/10/2021 2:53 PM EST Routine general medical examination at a health care facility HEPATITIS C ANTIBODY Routine 05/24/2020 4:33 PM EDT Routine general medical examination at a health care facility ANTIBODY HIV-1&HIV-2 SINGLE RESULT Routine 11/11/2019 3:25 PM EST Refugee health examination Need for vaccination from Last 3 Months or Most Recently Relevant to Health Maintenance Results * REFERRAL SCANNED DOCUMENT (08/19/2024 3:00 AM EST) Only the most recent of2 resultswithin the time period is included. 08/19/2024 3:00 AM EST us Radha Manriquez PA-C SCAN REFERRAL Final Result * HISTORIC COLONOSCOPY (06/12/2023 3:00 AM EDT) 06/12/2023 3:00 AM EDT Radha Manriquez PA-C PROCEDURES Edited Resul t - Final * HEMOGLOBIN, GLYCOSYLATED (A1C) (08/10/2021 2:53 PM EST) HEMOGLOBIN A1C 5.2 <5.7 % of total Hgb [employer] [facility] Comment: For the purpose of screening for the presence of diabetes: <5.7% ? Consistent with the absence of diabetes 5.7-6.4% ?Consistent with increased risk for diabetes ?(prediabetes) > or =6.5% ??Consistent with diabetes This assay result is consistent with a decreased risk of diabetes. Currently, no consensus exists regarding use of hemoglobin A1c for diagnosis of diabetes in children. According to [place] Diabetes Association (ADA) guidelines, hemoglobin A1c <7.0% represents optimal control in non- diabetic patients. Different metrics may apply to specific patient populations. Standards of Medical Care in Diabetes(ADA). ?? Blood Blood / Unknown 08/10/2021 2 :53 PM EST 08/10/2021 2:54 PM EST Sab[facility] - BLOOD DRAW Edited Result - Final [employer] [facility] [address] [address], [employer] [facility] [address] [address] * (ABNORMAL) LIPID PANEL (08/10/2021 2:53 PM EST) CHOLESTEROL, TOTAL 232(H) <200 mg/dL [employer] [facility] HDL CHOLESTEROL 40 > OR = 40 mg/dL [employer] TRIGLYCERIDES 237(H) <150 mg/dL [employer] [facility] Comment: If a non-fasting specimen was collected, consider repeat triglyceride testing on a fasting specimen if clinically indicated. Jose Alberto et al. J. of Clin. Lipidol. 2015;9:129-169. LDL-CHOLESTEROL 152(H) 99 mg/dL (calc) [employer] Comment: Reference range: <100 Desirable range <100 mg/dL for primary prevention; ?? <70 mg/dL for patients with CHD or diabetic patients with > or = 2 CHD risk factors. LDL-C is now calculated using the Jazlyn calculation, which is a validated novel method providing better accuracy than the Friedewald equation in the estimation of LDL-C. Jelani SS et al. SINDY. 2013;310(19): 4753-7514 (http://education.MK2Media/faq/YYM743) CHOL/HDLC RATIO 5.8(H) <5.0 (calc) [employer] NON-HDL CHOLESTEROL 192(H) <130 mg/dL (calc) [employer] Comment: For patients with diabetes plus 1 major ASCVD risk factor, treating to a non-HDL-C goal of <100 mg/dL (LDL-C of <70 mg/dL) is considered a therapeutic option. Blood Blood / Unknown 08/10/2021 2 :53 PM EST 08/10/2021 2:54 PM EST Sabine Dodd [employer]ACLE ADF DEVELOPER-C [facility] - BLOOD DRAW Final R esult [employer] [address] [place] [address], [employer] [address] [place] [address],[place] [address] * HEPATITIS C ANTIBODY (05/24/2020 4:33 PM EDT) HEPATITIS C VIRUS SCREEN NEGATIVE NEGATIVE [facility] Blood specimen (specimen) Blood / Unknown 05/24/2020 4:33 PM EDT 05/24/2020 9:26 PM EDT Narrative [facility] - 05/24/2020 11:07 PM EDT Compliance [employer], [place] [address] Payroll Officer - Yaneth Dunlap MD PT ID [id number] ORD# [id number] Verena Claysharon [facility] - BLOOD DRAW Final Result [facility] [address] [place] [address], [place] [phone] * HIV-1 & HIV-2 ANTIBODIES (11/11/2019 3:25 PM EST) [facility] HIV 1 AND 2 ANTIBODY SCREEN NEGATIVE NEGATIVE [facility] Comment: This assay is a 4th generation assay allowing for earlier detection of HIV infection by detecting the presence of the HIV-1 p24 antigen as well as the traditional antibodies to HIV type 1 (including group O) and type 2. ??Use of a 4th generation assay is the current CDC recommendation for HIV screening. Blood specimen (specimen) Blood / Unknown 11/11/2019 3:25 PM EST 11/11/2019 3:35 PM EST Narrative [facility] - 11/11/2019 7:00 PM EST [employer], a member of [address] [address] Payroll Officer - Yaneth Dunlap MD PT ID [id number] ORD# [id number] Verena Ftich [facility] - BLOOD DRAW Final Result Performing Organization Address City/[facility] [address]/ZIP Co de Phone Number [address] [address], [place] [phone] from Last 3 Months or Most Recently Relevant to Health Maintenance Insurance [employer] Member Subscriber Plan / Payer (Ef fective 2023-Present) Name:Madan Duarte Relation to Subscriber:Self Name:Madan Duarte Payer ID:[id number] Type:Indemnity Address: [address] [address] Care Teams Music Promoter Relationship Specialty Start Date End Date Radha Manriquez PA-C [address] [place] [address] [place] [address] PCP - General Internal Medicine 08/15/21
== END 2024-11-04 15:41 | disposition home or self-care (01) ==
PROVIDERS: Visit Provider Orthopaedic Surgery
DX: S52.502A Unspecified fracture of the lower end of left radius, initial encounter for closed fracture (principal); S52.615A Nondisplaced fracture of left ulna styloid process, initial encounter for closed fracture
CPT/HCPCS: 99024

== ENCOUNTER → 2024-11-04 14:45 | Outpatient (BNVA) | payer OTHER, SELFPAY | PROVIDERS: Visit Provider Orthopaedic Surgery | DX: S52.502D Unspecified fracture of the lower end of left radius, subsequent encounter for closed fracture with routine healing (principal); S52.615D Nondisplaced fracture of left ulna styloid process, subsequent encounter for closed fracture with routine healing | CPT/HCPCS: 99212 ==